=== PATIENT | female | born 1965 | race Two or more races ===

== ENCOUNTER 2024-09-18 06:45 | Day surgery (SDC) | payer MEDICAID, SELFPAY ==
[2024-09-15 10:27] VITALS: BMI 23.5
[2024-09-18] VITALS (9 sets, daily range): BP systolic 107–158; BP diastolic 60–102; PULSE 54–84; RESP 12–20; TEMP 36.4–36.9; O2SAT 98–100; BMI 23.5
[2024-09-18] MEDS: SODIUM CHLORIDE 0.9% 500 ML 500 ML 125 ML IV (07:28)
[2024-09-18] MEDS: MIDAZOLAM INJ 1 MG/ML VIAL 2 ML (ASD USE ONLY) 2 MG IVP (07:33)
[2024-09-18] MEDS: fentaNYL CIT INJ 50 mCg/ML AMP 2ML (ASD USE ONLY) IVP (07:35)
== END 2024-09-18 08:45 | disposition home or self-care (01) ==
PROVIDERS: PCP Physician Assistant; Referring Provider Surgery; Visit Provider Surgery
PROC: 0DBE8ZX Excision of Large Intestine, Via Natural or Artificial Opening Endoscopic, Diagnostic (ICD-10-PCS; CPT 45380; principal; 2024-09-18 07:30)
DX: Z12.11 Encounter for screening for malignant neoplasm of colon (principal); K64.1 Second degree hemorrhoids; K64.4 Residual hemorrhoidal skin tags; K52.89 Other specified noninfective gastroenteritis and colitis
CPT/HCPCS: 45380; J1200; J2250; J3010; J7999